=== PATIENT | male | born 1940 | race Caucasian/White ===

== ENCOUNTER → 2016-11-20 | Outpatient (CLI) | payer OTHER ==
[~2016-11-20] MED LIST: ALFU10TA2 PO; ASPI-435 PO; ATOR-22 PO; BTP80 PO; CMD5 PO; HYDR-5688 PO; METO50TA7 PO; ONDA4TAB10 SL; WARF2.5T8 PO; [UNRECOGNIZED DRUG - CODE] PO
--- NOTE | 2016-11-20 11:15 | DIAGNOSTIC IMAGING REPORT ---
CERVICAL SPINE 3 VIEWS HISTORY: Neuropathy. Pain. RIGHT HIP PAIN/NUMBNESS OF LEFT HAND/KNEE PAIN COMPARISON: None. FINDINGS: The cervical spine is visualized from C1 through the superior endplate of T1. There is no fracture. No subluxation. Mild degenerative intervertebral this changes from C4 through T1. Mild degenerative change posterior facets. Prevertebral soft tissues and the atlantodens interval are intact. IMPRESSION: Mild degenerative disc change from C4 through T1. Mild degenerative change posterior facets Electronically signed by: Alvarado Hamm M.D. 11/20/2016 11:13 AM
--- NOTE | 2016-11-20 11:17 | DIAGNOSTIC IMAGING REPORT ---
RIGHT HIP UNILATERAL 2 VIEWS CLINICAL HISTORY: Right hip pain. COMPARISON: None FINDINGS: Alignment of the right hip is anatomic. There is no fracture or suspicious lesion. There is mild osteophytosis. Joint space is preserved. IMPRESSION: Mild arthritis of the right hip. Electronically signed by: Gulshan Wilson M.D. 11/20/2016 11:16 AM
--- NOTE | 2016-11-20 11:20 | DIAGNOSTIC IMAGING REPORT ---
RIGHT KNEE 1 OR 2 VIEWS ROUTINE CLINICAL HISTORY: Bilateral knee pain. COMPARISON: None FINDINGS: Alignment of the right knee is anatomic. There is no acute fracture or joint effusion. There is extensive vascular calcification. There is chondrocalcinosis within the menisci. There may be mild narrowing of the patellofemoral joint compartment. A 1.1 cm calcific density projects along the posterior joint space, best shown on lateral projection. IMPRESSION: 1. No acute fracture or joint effusion of the right knee. 2. Chondrocalcinosis within the menisci. 3. Mild arthritis within the right knee, most pronounced within the patellofemoral compartment. 4. 1.1 cm calcific density projecting over the posterior joint space which may reflect a loose body. Electronically signed by: Gulshan Wilson M.D. 11/20/2016 11:18 AM
--- NOTE | 2016-11-20 11:21 | DIAGNOSTIC IMAGING REPORT ---
LEFT KNEE 1 OR 2 VIEWS ROUTINE CLINICAL HISTORY: Bilateral knee pain. COMPARISON: None FINDINGS: Alignment of the left knee is anatomic. There is no fracture or joint effusion. There is chondrocalcinosis within the menisci. There is extensive vascular calcification. There are suspected narrowing of the patellofemoral joint space. IMPRESSION: 1. No acute fracture or joint effusion of the left knee. 2. Chondrocalcinosis within the menisci with mild osteoarthritis, most pronounced within the patellofemoral compartment. Electronically signed by: Gulshan Wilson M.D. 11/20/2016 11:19 AM
== END | disposition home or self-care (01) ==
LOC: C.RADBC 10:39
PROVIDERS: ATTEND Family Medicine
DX: M25.551 Pain in right hip (principal); R20.8 Other disturbances of skin sensation

== ENCOUNTER → 2017-03-22 | Outpatient (CLI) | payer OTHER ==
[2017-03-22 11:29] LABS: CHOLESTEROL/HDL RATIO 1.9
== END | disposition home or self-care (01) ==
LOC: C.LABBC 07:29
PROVIDERS: ATTEND Internal Medicine Cardiovascular Disease
DX: I25.10 Atherosclerotic heart disease of native coronary artery without angina pectoris (principal)

== ENCOUNTER 2017-06-22 10:53 | Emergency (ER) | payer OTHER ==
[~2017-06-22] VITALS: Ht 165.1 cm; Wt 74.6 kg
[~2017-06-22 10:53] MED LIST changes: -ALFU10TA2 PO; +ALFU10TA30 PO; -METO50TA7 PO; -ONDA4TAB10 SL
[2017-06-22 11:01] VITALS: TEMP 36.7; Ht 165.1 cm; Wt 74.6 kg
[2017-06-22] MEDS ORDERED: METO50TA7 PO (11:07)
[2017-06-22 11:50] LABS: INR 2.4 (0.9-1.1); PROTHROMBIN TIME (PATIENT) 26.8 SECONDS (9.0-12.0)
--- NOTE | 2017-06-22 11:57 | DIAGNOSTIC IMAGING REPORT ---
RIGHT ELBOW MIN 3 VIEWS ROUTINE CLINICAL HISTORY: Right elbow pain status post trauma COMPARISON: None. DISCUSSION: The fat pads are not displaced. No acute fractures or dislocations are visualized. There is a curvilinear density adjacent to the olecranon which is likely old. IMPRESSION: 1. Sliver-like bony density adjacent to the olecranon on the lateral view. This is likely old. No evidence of a joint effusion. No acute fractures or dislocations identified. Electronically signed by: Nathan Chopra M.D. 06/22/2017 11:55 AM Dictated Date/Time: 06/22/2017 11:54 AM
--- NOTE | 2017-06-22 12:05 | DIAGNOSTIC IMAGING REPORT ---
CT HEAD WITHOUT CONTRAST (CT) CLINICAL HISTORY: Head trauma. Head pain. COMPARISON STUDY: No previous studies for comparison. TECHNIQUE: Axial CT of the brain is performed from the vertex to the skull base. IV contrast was not administered for this examination. A dose lowering technique was utilized adhering to the principles of ALARA. CT DOSE: 614.27 mGy.cm FINDINGS: No intra or extra-axial mass lesions are visualized. There is no CT evidence of acute cortical infarction. There is no evidence of midline shift. There is no acute hemorrhage. No calvarial fractures are visualized. There are patchy white matter hypodensities likely on a small vessel basis. There is no evidence of pathologic ventricular dilatation. There is no evidence of acute sinusitis. There is probable mild right frontal scalp edema. IMPRESSION: No acute intracranial findings Electronically signed by: Nathan Chopra M.D. 06/22/2017 12:03 PM Dictated Date/Time: 06/22/2017 12:02 PM
[2017-06-22] MEDS ORDERED: ONDA4TAB10 SL (12:35)
[2017-06-22] MEDS ORDERED: ONDANSETRON 4MG OD TAB PO ONE (12:45)
--- NOTE | 2017-06-22 13:25 | EMERGENCY ROOM VISIT NOTE ---
ED Visit Note First contact with patient: 11:07 The patient was seen and examined with Sergio Fontaine PA-C. I agree with the history, physical and findings. Neurologic exam was performed. Cranial nerves intact with good strength of upper and lower extremities. Ambulated without difficulty. Given strict follow up, return, and discharge instructions. Please see the note for disposition and details.
--- NOTE | 2017-06-22 13:28 | EMERGENCY ROOM VISIT NOTE ---
History First contact with patient: 11:07 (Tulio Fontaine PA) First contact with patient: 11:07 (Jose Luis Seay M.D.) Chief Complaint: FALL Stated Complaint: FELL, HIT HEAD, LACERATION ON RT ELBOW History of Present Illness The patient is a 76 year old male who presents to the Emergency Room with complaints of injuries after missing a curb and falling onto lower concrete. The patient reports hitting his head, and has a headache with nausea. He denies any loss of consciousness, neck pain or back pain. He also landed on his right elbow and has an abrasion/laceration to the posterior aspect. He also reports hitting his right knee, but can walk without any significant pain. The patient denies any shortness of breath, chest pain or abdominal pain. Tetanus immunization is up-to-date. The patient rates his headache a 4 out of 10 on my exam. He rated the pain a 2 out of 10 in triage. The patient is on Coumadin. He is scheduled on Saturday for an INR recheck. His INR is usually between 2 and 3. He has a history of atrial fibrillation. (Tulio Fontaine PA) Review of Systems 10 system review was performed and was negative except for pertinent positives and negatives as indicated in history of present illness (Tulio Fontaine PA) Past Medical/Surgical History Medical Problems: (1) ASCVD (2) Atrial Fibrillation (3) Atrial fibrillation (4) Carpal tunnel syndrome (5) Elevated Prostate Specific Antigen [Psa] (6) Hyperlipidemia Nec/Nos (7) Hypertension Nos Surgical Problems: (1) Aortocoronary Bypass (2) History of appendectomy (3) History of eye surgery (4) History of hernia repair (5) S/P TURP (Jose Luis Seay M.D.) Family History FH: heart disease (Tulio Fontaine PA) FH: heart disease (Jose Luis Seay M.D.) Social History Smoking Status: Never Smoker Alcohol Use: occasionally Drug Use: none Marital Status: Housing Status: lives with family Occupation Status: retired (Tulio Fontaine PA) Current/Historical Medications Scheduled Alfuzosin Hcl (Uroxatral), 10 MG PO QPM Aspirin (Aspirin 81), 81 MG PO DAILY Atorvastatin (Lipitor), 20 MG PO HS Enalapril/Hctz (Vaseretic 5MG/12.5MG *), 2 TAB PO DAILY Metoprolol Succ (Toprol Xl) (Toprol-Xl), 50 MG PO DAILY Ondasetron Odt (Zofran Odt), 4 MG SL Q6H Warfarin Sod (Coumadin *), 5 MG PO MF Warfarin Sod (Jantoven), 2.5 MG PO TWTHSASUN Physical Exam Vital Signs Date Time Temp Pulse Resp B/P (MAP) Pulse Ox O2 Delivery O2 Flow Rate FiO2 06/22/17 13:36 81 20 155/103 96 06/22/17 11:01 36.7 90 20 96 Room Air (Jose Luis Seay M.D.) Physical Exam CONSTITUTIONAL: Healthy and well nourished. Alert and oriented X 3 with positive affect. Patient does not appear in any acute distress. GCS 15. HEENT: Examination shows a hematoma and abrasion to the right upper forehead region. Pupils equal, round and reactive. No epistaxis, subconjunctival hemorrhage, hemotympanum, raccoon's eyes or Melgar sign. NECK: Full active range of motion without discomfort. RESPIRATORY: Clear to auscultation bilaterally with no wheezing, crackles, rhonchi or stridor. CARDIOVASCULAR: Regular rate and rhythm with no murmurs, rubs or gallops. GASTROINTESTINAL: Bowel sounds present in all quadrants. Soft and nontender to palpation. MUSCULOSKELETAL: Examination shows a 4 cm skin tear to the right posterior elbow. He has discomfort over the posterior/olecranon region. He is able to flex and extend, as well as pronate and supinate without any significant discomfort. No obvious elbow joint effusion. Patient also has mild tenderness over the right anterior knee. He otherwise exhibits full active range of motion without discomfort. Otherwise remaining musculoskeletal exam is normal. Distal pulses are intact. INTEGUMENTARY: No rash or other significant dermatologic conditions noted. NEUROLOGIC: Cranial nerves II-XII grossly intact. No focal neurologic deficits noted. (Tulio Fontaine PA) Medical Decision & Procedures ER Provider Diagnostic Interpretation: My interpretation of right elbow x-rays does not show any acute fractures or dislocations. Radiologist report is as follows: RIGHT ELBOW MIN 3 VIEWS ROUTINE CLINICAL HISTORY: Right elbow pain status post trauma COMPARISON: None. DISCUSSION: The fat pads are not displaced. No acute fractures or dislocations are visualized. There is a curvilinear density adjacent to the olecranon which is likely old. IMPRESSION: 1. Sliver-like bony density adjacent to the olecranon on the lateral view. This is likely old. No evidence of a joint effusion. No acute fractures or dislocations identified. Noncontrast CT of the head does not show any acute fractures or intracranial bleed. Radiologist report is as follows: CT HEAD WITHOUT CONTRAST (CT) CLINICAL HISTORY: Head trauma. Head pain. COMPARISON STUDY: No previous studies for comparison. TECHNIQUE: Axial CT of the brain is performed from the vertex to the skull base. IV contrast was not administered for this examination. A dose lowering technique was utilized adhering to the principles of ALARA. CT DOSE: 614.27 mGy.cm FINDINGS: No intra or extra-axial mass lesions are visualized. There is no CT evidence of acute cortical infarction. There is no evidence of midline shift. There is no acute hemorrhage. No calvarial fractures are visualized. There are patchy white matter hypodensities likely on a small vessel basis. There is no evidence of pathologic ventricular dilatation. There is no evidence of acute sinusitis. There is probable mild right frontal scalp edema. IMPRESSION: No acute intracranial findings (Tulio Fontaine PA) Laboratory Results Test 06/22/17 11:28 Prothrombin Time 26.8 SECONDS (9.0-12.0) Prothromb Time International Ratio 2.4 (0.9-1.1) (Jose Luis Seay M.D.) Medications Administered Medications (Trade) Dose Ordered Sig/Sana Route Start Time Stop Time Status Last Admin Dose Admin Ondansetron HCl (Zofran Odt) 4 mg ONE ONCE PO 06/22/17 12:45 06/22/17 12:46 DC 06/22/17 12:50 4 MG (Jose Luis Seay M.D.) ED Course Patient history and physical exam were performed. Nurse's notes were reviewed. Vital signs were reviewed. The patient refused any analgesics. Noncontrast CT of the head did not show any fractures or intracranial bleed. X-rays of the right elbow were also normal. The patient's wounds were cleansed. Steri-Strips were applied to the right posterior elbow skin tear. The patient was provided additional wound care instructions. Ice to areas of discomfort. Tylenol as needed for pain. The patient was instructed to limit activities until his headache resolves. He was encouraged to follow-up with his PCP Saturday as needed for any significant symptoms. He was instructed to return to the emergency department over the weekend for any progressively worsening headache, vomiting or other concerning neurologic symptoms. The patient was administered Zofran 4 mg ODT for mild nausea. He also received a prescription for the same. He refused any prescription analgesics. The patient was happy with plan of care, voiced understanding of all discharge instructions, and rated his discomfort a 2 out of 10 at the time of discharge. The patient was also seen and examined by Dr. Seay, ED attending physician, who agrees with workup and plan of care. (Tulio Fontaine PA) Medical Decision (Tulio Fontaine PA) Head Trauma GCS Score: 15 (Tulio Fontaine PA) Medication Reconcilliation Current Medication List: was personally reviewed by me (Tulio Fontaine PA) Impression Primary Impression: Concussion Additional Impressions: Traumatic hematoma of forehead Laceration of right elbow Multiple contusions Fall from slip, trip, or stumble Departure Information Prescriptions Ondasetron Odt (ZOFRAN ODT) 4 Mg Tab 4 MG SL Q6H for Nausea, #10 TAB Prov: Tulio Fontaine PA 06/22/17 Referrals Fabi Walker DO (PCP) Patient Instructions [facility] Problem Qualifiers Primary Impression: Concussion Encounter type: initial encounter Loss of consciousness presence/duration: without LOC Qualified Codes: S06.0X0A - Concussion without loss of consciousness, initial encounter Additional Impressions: Traumatic hematoma of forehead Encounter type: initial encounter Qualified Codes: S00.83XA - Contusion of other part of head, initial encounter Laceration of right elbow Encounter type: initial encounter Qualified Codes: S51.011A - Laceration without foreign body of right elbow, initial encounter Fall from slip, trip, or stumble Encounter type: initial encounter Qualified Codes: W01.0XXA - Fall on same level from slipping, tripping and stumbling without subsequent striking against object, initial encounter
[2017-06-22 13:36] VITALS: BP 155/103; PULSE 81; O2SAT 96
== END 2017-06-22 13:37 | disposition home or self-care (01) ==
LOC: C.EDB 10:54 → C.EDD 13:37
DX: S06.0X0A Concussion without loss of consciousness, initial encounter (principal); S00.83XA Contusion of other part of head, initial encounter; S51.011A Laceration without foreign body of right elbow, initial encounter; W01.0XXA Fall on same level from slipping, tripping and stumbling without subsequent striking against object, initial encounter; I48.91 Unspecified atrial fibrillation; I10 Essential (primary) hypertension; E78.5 Hyperlipidemia, unspecified; Z95.1 Presence of aortocoronary bypass graft; Z90.79 Acquired absence of other genital organ(s); Z90.89 Acquired absence of other organs; Z98.890 Other specified postprocedural states; Z79.01 Long term (current) use of anticoagulants; Z79.82 Long term (current) use of aspirin; Z79.899 Other long term (current) drug therapy

== ENCOUNTER → 2017-07-18 | Outpatient (CLI) | payer OTHER ==
[~2017-07-18] MED LIST changes: -BTP80 PO; -HYDR-5688 PO; +METO50TA7 PO; +ONDA4TAB10 SL
[2017-07-18 11:32] LABS: BLOOD UREA NITROGEN 16 mg/dl (7-18); BUN/CREATININE RATIO 18.5 (10-20); CALCIUM 9.4 mg/dl (8.5-10.1); CARBON DIOXIDE 29 mmol/L (21-32); CHLORIDE 106 mmol/L (98-107); CREATININE 0.86 mg/dl (0.60-1.40); GLUCOSE 74 mg/dl (70-99); SODIUM 141 mmol/L (136-145)
== END | disposition home or self-care (01) ==
LOC: C.LABBC 07:22
PROVIDERS: ATTEND Family Medicine
DX: I10 Essential (primary) hypertension (principal)

== ENCOUNTER → 2017-07-26 | Outpatient (CLI) | payer OTHER ==
--- NOTE | 2017-07-26 10:40 | DIAGNOSTIC IMAGING REPORT ---
L-SPINE MIN 4 VIEWS ROUTINE CLINICAL HISTORY: M54.5 Low back [id number] COMPARISON STUDY: No previous studies for comparison. FINDINGS: There are moderate multilevel degenerative changes. No acute fractures are visualized. There is a grade 1 spondylolisthesis of L4 on L5. There is no pathologic bowel dilatation. There are no acute fractures. No destructive lesions are visualized on conventional radiographic imaging. IMPRESSION: 1. Moderate multilevel degenerative change 2. No acute fractures identified Electronically signed by: Nathan Chopra M.D. 07/26/2017 10:39 AM Dictated Date/Time: 07/26/2017 10:38 AM
== END | disposition home or self-care (01) ==
LOC: C.RADBC 10:07
PROVIDERS: ATTEND Nurse Practitioner Family
DX: M51.36 Other intervertebral disc degeneration, lumbar region (principal)

== ENCOUNTER → 2017-09-30 | Outpatient (CLI) | payer OTHER ==
[~2017-09-30] MED LIST changes: +ALFU10TA2 PO; -ALFU10TA30 PO
[2017-09-30 10:37] LABS: BASO % 0.4 %; BASO ABS # 0.02 K/uL (0-0.2); COMPLETE YES; EOS % 1.3 %; HEMATOCRIT 40.7 % (42-52); LYMPH % 39.1 %; LYMPH ABS # 1.75 K/uL (1.2-3.4); MEAN CELL VOLUME 97.8 fL (80-100); MEAN CORPUSCULAR HEMOGLOBIN 32.9 pg (25-34); MEAN CORPUSCULAR HGB CONC 33.7 g/dl (32-36); MEAN PLATELET VOLUME 11.4 fL (7.4-10.4); MONO % 10.9 %; NEUT % 48.3 %; PLATELET COUNT 137 K/uL (130-400); RED BLOOD COUNT 4.16 M/uL (4.7-6.1); WHITE BLOOD COUNT 4.48 K/uL (4.8-10.8)
[2017-09-30 11:20] LABS: AST/SGOT 26 U/L (15-37); BLOOD UREA NITROGEN 20 mg/dl (7-18); BUN/CREATININE RATIO 20.6 (10-20); CALCIUM 8.8 mg/dl (8.5-10.1); CARBON DIOXIDE 28 mmol/L (21-32); CHLORIDE 105 mmol/L (98-107); CREATININE 0.98 mg/dl (0.60-1.40); GLUCOSE 78 mg/dl (70-99); POTASSIUM 4.2 mmol/L (3.5-5.1); SODIUM 142 mmol/L (136-145)
[2017-09-30 11:25] LABS: ALB/GLOB RATIO 1.3 (0.9-2); ALKALINE PHOSPHATASE 110 U/L (45-117); ALT/SGPT 32 U/L (12-78); CHOLESTEROL 126 mg/dl (0-200); CHOLESTEROL/HDL RATIO 1.7; HDL CHOLESTEROL 76 mg/dl; LDL CHOLESTEROL CALCULATED 39 mg/dl; TRIGLYCERIDES 55 mg/dl (0-150); VERY LOW DENSITY LIPOPROT CALC 11 mg/dl
== END | disposition home or self-care (01) ==
LOC: C.LABBC 07:30
PROVIDERS: ATTEND Nurse Practitioner Family
DX: I10 Essential (primary) hypertension (principal); E78.00 Pure hypercholesterolemia, unspecified; N40.0 Benign prostatic hyperplasia without lower urinary tract symptoms; I48.91 Unspecified atrial fibrillation; M15.9 Polyosteoarthritis, unspecified

== ENCOUNTER → 2018-03-28 | Outpatient (CLI) | payer OTHER ==
[~2018-03-28] MED LIST changes: -METO50TA7 PO; +METO50TA8 PO; -ONDA4TAB10 SL
[2018-03-28 10:37] LABS: BASO % 0.2 %; BASO ABS # 0.01 K/uL (0-0.2); EOS % 1.1 %; EOS ABS # 0.05 K/uL (0-0.5); HEMATOCRIT 39.4 % (42-52); HEMOGLOBIN 13.5 g/dL (14.0-18.0); IG# 0.01 K/uL (0.00-0.02); LYMPH % 39.2 %; LYMPH ABS # 1.74 K/uL (1.2-3.4); MEAN CELL VOLUME 96.1 fL (80-100); MEAN CORPUSCULAR HEMOGLOBIN 32.9 pg (25-34); MEAN CORPUSCULAR HGB CONC 34.3 g/dl (32-36); MEAN PLATELET VOLUME 11.5 fL (7.4-10.4); MONO % 10.4 %; MONO ABS # 0.46 K/uL (0.11-0.59); NEUT % 48.9 %; NEUT ABS # 2.17 K/uL (1.4-6.5); PLATELET COUNT 133 K/uL (130-400); RED CELL DISTRIBUTION WIDTH CV 13.6 % (11.5-14.5); WHITE BLOOD COUNT 4.44 K/uL (4.8-10.8)
[2018-03-28 10:51] LABS: BLOOD UREA NITROGEN 20 mg/dl (7-18); CALCIUM 8.6 mg/dl (8.5-10.1); CARBON DIOXIDE 28 mmol/L (21-32); CREATININE 0.94 mg/dl (0.60-1.40); GLUCOSE 85 mg/dl (70-99); POTASSIUM 4.2 mmol/L (3.5-5.1); SODIUM 140 mmol/L (136-145)
[2018-03-28 10:56] LABS: CHOLESTEROL 131 mg/dl (0-200); LDL CHOLESTEROL CALCULATED 46 mg/dl
== END | disposition home or self-care (01) ==
LOC: C.LABBC 07:25
PROVIDERS: ATTEND Nurse Practitioner Family
DX: I10 Essential (primary) hypertension (principal); I48.91 Unspecified atrial fibrillation; R97.20 Elevated prostate specific antigen [PSA]; E78.00 Pure hypercholesterolemia, unspecified